=== PATIENT | male | born 1995 | race Caucasian/White ===

== ENCOUNTER 2016-08-18 08:25 | Emergency (ER) | payer OTHER ==
[2016-08-18 08:33] VITALS: BP 147/93; PULSE 85; RESP 20; TEMP 96.8; O2SAT 98
[2016-08-18 10:10] LABS: BASOPHILS % (AUTO) 1 % (0-3); EOSINOPHILS % (AUTO) 2 % (0-9); HEMATOCRIT 46 % (39-53); MEAN CORPUSCULAR HGB CONC 33.8 gm/dl (32.0-36.0); MEAN CORPUSCULAR VOLUME 92 fL (80-100); MONOCYTES % (AUTO) 9.2 % (0-12); NEUTROPHILS % (AUTO) 61.8 % (37-80)
[2016-08-18 10:34] LABS: ALBUMIN 4.2 gm/dl (3.4-5.0); ALT 32 IU/L (14-63); CALCIUM 8.8 mg/dl (8.5-10.1); GLOM FILT RATE 132 mL/min (>60); POTASSIUM 4.1 mMol/L (3.5-5.1); SODIUM 141 mMol/L (136-145); THYROID STIMULATING HORMONE 1.979 uIU/ml (0.358-3.740)
[2016-08-18 10:37] LABS: APPEARANCE,URINE Clear; BILIRUBIN,URINE NEGATIVE (NEGATIVE); COLOR,URINE Yellow; GLUCOSE, URINE (UA) NEGATIVE (NEGATIVE); KETONES,URINE NEGATIVE (NEGATIVE); LEUKOCYTE ESTERASE ,URINE NEGATIVE (NEGATIVE); NITRATE,URINE NEGATIVE (NEGATIVE); OCCULT BLOOD,URINE NEGATIVE (NEG-TRACE); UROBILINOGEN,URINE 0.2 (0.2-1.0 EU)
[2016-08-18 11:08] LABS: RBC,URINE NEGATIVE (0-3AV/HPF)
[2016-08-18 11:09] LABS: AMPHETAMINES NEGATIVE (NEGATIVE); METHADONE NEGATIVE (NEGATIVE); OPIATES(OP13) NEGATIVE (NEGATIVE); OXYCODONE(OXY) NEGATIVE (NEGATIVE); PROPOXYPHENE(PPX) NEGATIVE (NEGATIVE); TRICYCLIC ANTIDEPRESSANTS NEGATIVE (NEGATIVE); WBC,URINE NEGATIVE (0-5AV/HPF)
[2016-08-18] MEDS ORDERED: LORAZEPAM 0.5 MG TAB PO ONE (13:22)
[2016-08-18] MEDS ORDERED: LORAZEPAM 0.5 MG TAB ONE (13:40)
== END 2016-08-18 14:00 | disposition short-term general hospital (02) ==
LOC: ED 08:25
DX: R45.851 Suicidal ideations (principal); F32.9 Major depressive disorder, single episode, unspecified
CPT/HCPCS: 36415; 80053; 80305; 80307; 81001; 84443; 85025; 99284

== ENCOUNTER 2016-10-26 08:45 | Emergency (ER) | payer OTHER ==
[2016-10-26 08:50] VITALS: BP 127/69; PULSE 80; RESP 18; TEMP 97.4; O2SAT 100
[2016-10-26] MEDS ORDERED: TRAMADOL HYDROCHLORIDE 50 MG TAB PO ONE (09:13)
[2016-10-26] MEDS ORDERED: TRAMADOL HYDROCHLORIDE 50 MG TAB ONE (09:13)
== END 2016-10-26 09:29 | disposition home or self-care (01) ==
LOC: ED 08:45
DX: K02.9 Dental caries, unspecified (principal)
CPT/HCPCS: 99282

== ENCOUNTER 2018-01-15 12:52 | Emergency (ER) | payer MEDICAID, OTHER ==
[2018-01-15 13:03] VITALS: RESP 20
[2018-01-15] MEDS ORDERED: KETOROLAC TROMETHAMINE 30 MG/ML SOL IM ONE (13:09)
[2018-01-15] MEDS ORDERED: APAP/HYDROCODONE 325/5 TAB PO ONE (13:09)
[2018-01-15] MEDS ORDERED: KETOROLAC TROMETHAMINE 30 MG/ML SOL ONE (13:10)
[2018-01-15] MEDS ORDERED: APAP/HYDROCODONE 325/5 TAB ONE (13:10)
[2018-01-15 14:10] VITALS: BP 125/75; PULSE 86; TEMP 97.4; O2SAT 95
== END 2018-01-15 13:57 | disposition home or self-care (01) | DRG 159 ==
LOC: ED 12:52
DX: K04.7 Periapical abscess without sinus (principal); K08.89 Other specified disorders of teeth and supporting structures
CPT/HCPCS: 96372; 99283; J1885; A9270-GY

== ENCOUNTER 2018-06-28 14:39 | Emergency (ER) | payer MEDICAID, OTHER ==
[2018-06-28 15:14] VITALS: BP 149/86; PULSE 74; RESP 22; TEMP 97.5; O2SAT 98
[2018-06-28] MEDS ORDERED: KETOROLAC TROMETHAMINE 30 MG/ML SOL IM ONE (15:37)
== END 2018-06-28 16:00 | disposition home or self-care (01) | DRG 159 ==
LOC: ED 14:39
DX: K02.9 Dental caries, unspecified (principal); K08.89 Other specified disorders of teeth and supporting structures
CPT/HCPCS: 99282